=== PATIENT | male | born 1950 | race Caucasian/White ===

== ENCOUNTER 2024-04-03 09:23 | Day surgery (SDC) | payer MEDICARE, BC ==
[2024-04-03] MEDS ORDERED: Dexamethasone 4 MG/ML SDV IV ONE (09:24)
[2024-04-03] MEDS ORDERED: Sodium Chloride 0.9% 10 ML Syringe IV ONE (09:24)
[2024-04-03] MEDS ORDERED: Midazolam 1 MG/ML 2 ML SDV IV ONE (09:24)
[2024-04-03] MEDS ORDERED: Ondansetron 4 MG/2 ML SDV IVPUSH PRN (09:45)
[2024-04-03] MEDS ORDERED: Acetaminophen 325 MG Tab PO PRN (09:45)
[2024-04-03] MEDS ORDERED: Acetaminophen/Codeine 300-30 MG Tab PO PRN (09:45)
[2024-04-03] MEDS ORDERED: Sodium Chloride 0.9% 10 ML Syringe FLUSH PRN (09:45)
[2024-04-03] MEDS: Proparacaine 0.5% Ophth Soln 15 ML Bottle EYELF ONE ×2 (09:55→10:51)
[2024-04-03] MEDS: Povidone-Iodine 5% Sterile Ophth Soln 30 ML Bottle EYELF ONE ×2 (09:56→10:51)
[2024-04-03] MEDS: Moxifloxacin 0.5% Ophth Soln 3 ML Bottle EYELF ONE (09:58)
[2024-04-03] MEDS: Tropicamide 1% Ophth Soln 15 ML Bottle EYELF ONE (09:59)
[2024-04-03] MEDS: Phenylephrine 10% Ophth Soln 5 ML Bot EYELF ONE (10:00)
[2024-04-03] MEDS: Timolol Maleate 0.5% Ophth Soln 5 ML Bottle EYELF ONE (10:01)
[2024-04-03] MEDS: Cataract Ophth Solution EYELF ONE (10:07)
[2024-04-03] MEDS: VANCOmycin 500 MG SDV EYELF ONE (10:51)
[2024-04-03] MEDS: Lidocaine 1% 30 ML SDV ONE (10:51)
[2024-04-03] MEDS: Dexamethasone/Neomycin/Polymyxin B Ophth Oint 3.5 GM Tube EYELF ONE (11:06)
[2024-04-03] MEDS: Diclofenac Sodium 0.1% Ophth Soln 5 ML Bottle EYELF ONE (11:06)
[2024-04-03] MEDS: Apraclonidine 0.5% Ophth Soln 5 ML Bot EYELF ONE (11:06)
== END 2024-04-03 11:42 | disposition home or self-care (01) ==
LOC: DL.SDS 09:23
PROVIDERS: ATTEND Ophthalmology
DX: H25.812 Combined forms of age-related cataract, left eye (principal); I10 Essential (primary) hypertension; I25.10 Atherosclerotic heart disease of native coronary artery without angina pectoris; E78.5 Hyperlipidemia, unspecified; Z88.8 Allergy status to other drugs, medicaments and biological substances; Z79.899 Other long term (current) drug therapy
CPT/HCPCS: 66984; A9270; J3370; J1100; J2250; J3490

== ENCOUNTER 2024-04-17 09:36 | Day surgery (SDC) | payer MEDICARE, BC ==
[2024-04-17] MEDS ORDERED: Acetaminophen 325 MG Tab PO PRN (09:45)
[2024-04-17] MEDS ORDERED: Sodium Chloride 0.9% 10 ML Syringe FLUSH PRN (09:45)
[2024-04-17] MEDS ORDERED: Acetaminophen/Codeine 300-30 MG Tab PO PRN (09:45)
[2024-04-17] MEDS ORDERED: Ondansetron 4 MG/2 ML SDV IVPUSH PRN (09:45)
[2024-04-17] MEDS: Proparacaine 0.5% Ophth Soln 15 ML Bottle EYERT ONE ×2 (10:11→10:49)
[2024-04-17] MEDS: Povidone-Iodine 5% Sterile Ophth Soln 30 ML Bottle EYERT ONE ×2 (10:11→10:50)
[2024-04-17] MEDS: Moxifloxacin 0.5% Ophth Soln 3 ML Bottle EYERT ONE (10:13)
[2024-04-17] MEDS: Tropicamide 1% Ophth Soln 15 ML Bottle EYERT ONE (10:14)
[2024-04-17] MEDS: Phenylephrine 10% Ophth Soln 5 ML Bot EYERT ONE (10:15)
[2024-04-17] MEDS: Timolol Maleate 0.5% Ophth Soln 5 ML Bottle EYERT ONE (10:20)
[2024-04-17] MEDS: Cataract Ophth Solution EYERT ONE (10:20)
[2024-04-17] MEDS: Apraclonidine 0.5% Ophth Soln 5 ML Bot EYERT ONE (10:50)
[2024-04-17] MEDS: Diclofenac Sodium 0.1% Ophth Soln 5 ML Bottle EYERT ONE (10:52)
[2024-04-17] MEDS: VANCOmycin 500 MG SDV EYERT ONE (10:53)
[2024-04-17] MEDS: Dexamethasone/Neomycin/Polymyxin B Ophth Oint 3.5 GM Tube EYERT ONE (10:53)
[2024-04-17] MEDS: Lidocaine 1% 30 ML SDV ONE (10:53)
== END 2024-04-17 11:28 | disposition home or self-care (01) ==
LOC: DL.SDS 09:36
PROVIDERS: ATTEND Ophthalmology
DX: H25.811 Combined forms of age-related cataract, right eye (principal); I25.10 Atherosclerotic heart disease of native coronary artery without angina pectoris; Z88.8 Allergy status to other drugs, medicaments and biological substances
CPT/HCPCS: 66984; A9270; J3370; J3490